=== PATIENT | male | born 1965 | race Two or more races ===

== ENCOUNTER 2019-12-11 23:10 | Emergency (ER) | payer OTHER, SELFPAY ==
[~2019-12-11] VITALS: Ht 177.8 cm; Wt 84.1 kg
[2019-12-11 23:56] LABS: ALANINE AMINOTRANSFERASE 33 U/L (12-78); ALBUMIN 4.1 g/dL (3.4-5.0); ANION GAP 7 mmol/L (5-15); CALCIUM 8.5 mg/dL (8.5-10.1); CHLORIDE 100 mmol/L (98-107); CREATININE 0.99 mg/dL (0.7-1.3)
[2019-12-11 23:59] LABS: BASOPHILS % (AUTO) 0 % (0-1); EOSINOPHILS % (AUTO) 0 % (1-7); LYMPHOCYTES % (AUTO) 10 % (22-44); MEAN CORPUSCULAR HEMOGLOBIN 29.3 pg (27.5-34.5); MEAN CORPUSCULAR HGB CONC 34.3 g/dL (33.2-36.2); MEAN PLATELET VOLUME 8.8 fL (7.4-10.4); MONOCYTES % (AUTO) 4 % (2-9); NEUTROPHILS % (AUTO) 85 % (42-75); PLATELET COUNT 174 x10^3/uL (130-400); RED BLOOD COUNT 5.46 x10^6/uL (4.38-5.82); RED CELL DISTRIBUTION WIDTH 13.1 % (9.4-14.8)
[2019-12-12] LABS: MD NO
[2019-12-12 00:01] LABS: ALKALINE PHOSPHATASE 107 U/L (45-117); BILIRUBIN,TOTAL 0.6 mg/dL (0.2-1.0); TOTAL PROTEIN 8.3 g/dL (6.4-8.2); TROPONIN I < 0.015 ng/mL (0.000-0.045)
--- NOTE | 2019-12-12 01:21 | NUR ---
PT WALKED BACK FROM LOBBY TO ROOM AT THIS TIME.
--- NOTE | 2019-12-12 01:30 | NUR ---
MED STUDENT AT BEDSIDE FOR EVAL AT THIS TIME
[2019-12-12] MEDS ORDERED: PROCHLORPERAZINE 10MG TABLET PO ONE (02:00)
[2019-12-12] MEDS ORDERED: IBUPROFEN 200 MG TABLET PO ONE (02:00)
[2019-12-12] MEDS ORDERED: SUMATRIPTAN 6MG/0.5ML SQ ONE ×2 (02:00→02:16)
[2019-12-12] MEDS ORDERED: IBUPROFEN 600 MG TABLET ONE (02:16)
[2019-12-12] MEDS ORDERED: PROCHLORPERAZINE 10MG TABLET ONE (02:16)
--- NOTE | 2019-12-12 02:24 | NUR ---
PT MEDICATED PER [facility]
[2019-12-12 03:31] VITALS: BP 141/91
--- NOTE | 2019-12-12 03:37 | NUR ---
Patient given discharge instructions and they have confirmed that they understand the instructions. Patient ambulatory with steady gait. NAD, DENIES ADDITIONAL QUESTIONS OR NEEDS AT THIS TIME, NO PERSONAL BELONGINGS LEFT IN ROOM AFTER DC.
== END 2019-12-12 03:41 | disposition home or self-care (01) ==
LOC: ED 23:40
DX: R51.9 Headache, unspecified (principal); I10 Essential (primary) hypertension; R07.89 Other chest pain; R06.02 Shortness of breath
CPT/HCPCS: 36415; 70450; 71046; 80053; 84484; 85025; 93005; 96372; 99285; J3030; Q0164

== ENCOUNTER 2020-04-27 03:36 | Emergency (ER) | payer SELFPAY ==
[~2020-04-27] VITALS: Ht 175.3 cm; Wt 84.4 kg
[2020-04-27] MEDS ORDERED: KETOROLAC 30 MG/1 ML IM ONE (04:00)
[2020-04-27] MEDS ORDERED: ACETAMINOPHEN 500 MG TABLET PO ONE (04:00)
[2020-04-27] MEDS ORDERED: KETOROLAC 30 MG/1 ML ONE (04:03)
[2020-04-27] MEDS ORDERED: ACETAMINOPHEN 500 MG TABLET ONE (04:03)
--- NOTE | 2020-04-27 04:16 | NUR ---
PT STATES TAKING BLOOD PRESSURE EARLIER AND HAS BEEN HIGH. PT CONCERNED THAT CURRENT MEDICATION IS NOT ENOUGH. PT STATES BP HAS BEEN HIGH TOO MUCH LATELY. PT HAS HEADACHE, DENIES N/V OF PHOTOPHOBIA. MEICATED PER TD, LAB AT BEDSIDE
[2020-04-27 04:39] LABS: ANION GAP 8 mmol/L (5-15); CALCIUM 8.6 mg/dL (8.5-10.1); CHLORIDE 100 mmol/L (98-107)
[2020-04-27 04:41] VITALS: BP 132/87
[2020-04-27 04:42] LABS: BASOPHILS % (AUTO) 1 % (0-1); EOSINOPHILS % (AUTO) 0 % (1-7); LYMPHOCYTES % (AUTO) 12 % (22-44); MEAN CORPUSCULAR HEMOGLOBIN 29.5 pg (27.5-34.5); MEAN CORPUSCULAR HGB CONC 34.6 g/dL (33.2-36.2); MEAN PLATELET VOLUME 8.7 fL (7.4-10.4); MONOCYTES % (AUTO) 5 % (2-9); NEUTROPHILS % (AUTO) 83 % (42-75); PLATELET COUNT 187 x10^3/uL (130-400); RED BLOOD COUNT 5.17 x10^6/uL (4.38-5.82); RED CELL DISTRIBUTION WIDTH 13.1 % (9.4-14.8)
--- NOTE | 2020-04-27 04:42 | NUR ---
pt states headache has improved, resting in [place], monitors in place, awaiting lab results
[2020-04-27 04:43] LABS: MD NO
[2020-04-27 04:47] LABS: CREATININE 0.79 mg/dL (0.7-1.3); TROPONIN I < 0.015 ng/mL (0.000-0.045)
== END 2020-04-27 05:11 | disposition home or self-care (01) ==
LOC: ED 04:45
DX: R07.89 Other chest pain (principal); I10 Essential (primary) hypertension; R51.9 Headache, unspecified
CPT/HCPCS: 36415; 80048; 82040; 84484; 85025; 93005; 96372; 99284; J1885